=== PATIENT | female | born 1995 | race Hispanic/Latino ===

== ENCOUNTER 2018-11-30 08:29 | Inpatient (IN) | payer SELFPAY ==
[2018-11-30] MEDS ORDERED: Fentanyl 100 MCG/2 ML VIAL ONE (10:31)
[2018-11-30] MEDS ORDERED: Midazolam HCl 2 mg/2 ml Vial ONE (10:50)
[2018-11-30] MEDS ORDERED: Ketorolac Tromethamine 30 MG/ML VIAL ONE (10:51)
--- NOTE | 2018-11-30 11:38 | HP ---
HISTORY OF PRESENT ILLNESS: A 22-year-old female, 2, para 2, 2 months, , has experienced for the last 2 years abdominal pain. She has been in the emergency room 3 to 4 times in the past, seeing her primary care doctor all of which have told her she has reflux and takes Prilosec. On this occasion, she went to the emergency room for severe epigastric right upper quadrant pain. She has never had thoracic burning pain to suggest reflux. The PPI, she has been prescribed and advised to take have not helped her with her pain. On this visit, an ultrasound was obtained revealing gallstones in [place] and she was transferred to this facility for cholecystitis and cholelithiasis. She is seen in preoperative holding and evaluated. ALLERGIES: NONE. SOCIAL HISTORY: Tobacco, none. Alcohol, rarely. MEDICATIONS: None routinely except for Prilosec. PAST SURGICAL HISTORY: Noncontributory. PAST MEDICAL HISTORY: Noncontributory. PHYSICAL EXAMINATION: VITAL SIGNS: 153/84, 92, 98.1 degrees, respiratory rate 24, 250 pounds, 99% saturations. HEAD, EYES, EARS, NOSE, AND THROAT: Unremarkable. Sclerae nonicteric. LUNGS: Clear to auscultation. CARDIAC: Regular rate and rhythm. No murmur or gallop. ABDOMEN: Soft. Mild tenderness in right upper quadrant. EXTREMITIES: Unremarkable. LABORATORY DATA: Hemoglobin 13 and white count 9. Glucose 102, BUN 13, creatinine 0.82, sodium 141, potassium 3.7, chloride 104, carbon dioxide 24, bilirubin is 3, alkaline phosphatase 142, AST 172, SGPT 157, and lipase 19. Ultrasound does reveal intrahepatic ductal dilatation. ASSESSMENT AND PLAN: Dilated bile duct, elevated bilirubin, suspect choledocholithiasis. We would recommend laparoscopic video cholecystectomy, cholangiograms, and she may need an ERCP. Risks and benefits discussed. She consents. Job ID: [id number]
[2018-11-30] MEDS ORDERED: Iothalamate Meglumine 60% 50 ML VIAL FS ONE ×2 (12:05→12:58)
[2018-11-30] MEDS ORDERED: Bupivacaine/Epinephrine 0.25% 30 ML VIAL ONE (12:05)
[2018-11-30] MEDS ORDERED: Indomethacin 50 MG SUPP ONE ×2 (12:58→13:00)
--- NOTE | 2018-11-30 13:10 | CON ---
DATE OF CONSULTATION: 11/30/2018 CHIEF COMPLAINT: Abdominal pain. HISTORY OF PRESENT ILLNESS: Ms. Bowles is a 22-year-old woman, who has had epigastric aching, burning, and pressure-like pain on and off for the last couple of years. The pain lasts for a couple of days at a time and can radiate around towards her right back. She gets episodes of this pain around every few months. This acute episode started 2 nights ago and has persisted. She went to the emergency room and had blood work done that showed elevated liver tests with a bilirubin of 3, alkaline phosphatase of 142, AST of 172, ALT of 157, and normal lipase. She had an ultrasound performed that showed cholelithiasis and suspected choledocholithiasis with extrahepatic biliary dilation. She did have nausea and vomiting with this last night. Her pain did improve earlier this morning, but it seems to be recurring. She has had some chronic constipation. She reports having a bowel movement around once every 3 days and had an anal fissure in the past with that. She was started on a stool softener. Previously for the epigastric pain, she has been treated with proton pump inhibitors. PAST MEDICAL HISTORY: Otherwise negative. She did deliver a healthy baby boy on August 152018. PAST SURGICAL HISTORY: [place] teeth extraction. FAMILY HISTORY: Negative for GI malignancy. SOCIAL HISTORY: No alcohol, tobacco, or drugs. She is breast-feeding. ALLERGIES: NO KNOWN DRUG ALLERGIES. MEDICATIONS: She has taken Prilosec a couple of times 4-week course, but this has not been a long-term medication. REVIEW OF SYSTEMS: Negative x10 systems reviewed except as stated in history of present illness. PHYSICAL EXAMINATION: GENERAL: She is in no acute distress. Alert and oriented x3. HEENT: Eyes have no scleral icterus. Oropharynx is clear without lesions. NECK: No cervical or supraclavicular lymphadenopathy. LUNGS: Clear to auscultation bilaterally. HEART: Regular rate and rhythm without murmur. ABDOMEN: Soft. Mild tenderness in the epigastric region without guarding. Bowel sounds are present. EXTREMITIES: No lower extremity edema. LABORATORY DATA: Liver tests were noted above. White blood cell count was 9.3, hemoglobin 13.4, and platelets 295. IMPRESSION: Suspected choledocholithiasis with possible cholecystitis. She has elevated liver tests suggestive of an obstructing stone and gallstones in the gallbladder. She is planned for laparoscopic cholecystectomy with intraoperative cholangiogram this morning and the plan will be to follow with endoscopic retrograde cholangiopancreatography under the stomach in same anesthesia. I explained the risks and benefits of the endoscopic retrograde cholangiopancreatography in detail with the patient and her , including pictures and risks for failed cannulation and pancreatitis and perforation, bleeding. She is on antibiotics. RECOMMENDATIONS: ERCP today to follow laparoscopic ultrasound with IOC. If IOC shows the stone is passed, then we can hold off ERCP. Job ID: [id number]
[2018-11-30] MEDS ORDERED: Promethazine HCl 25 MG/ML VIAL IM PRN (13:53)
[2018-11-30] MEDS ORDERED: Promethazine HCl 25 MG/ML VIAL SLOW IVP PRN (13:53)
[2018-11-30] MEDS ORDERED: PACU-Morphine 4MG/ML VIAL SLOW IVP PRN (13:53)
[2018-11-30] MEDS ORDERED: Morphine Sulfate 2 MG/ML SYRINGE SLOW IVP PRN (13:53)
[2018-11-30] MEDS ORDERED: Meperidine HCl/PF 25 MG/ML VIAL SLOW IVP PRN (13:53)
[2018-11-30] MEDS ORDERED: Ondansetron HCl/PF 4 MG/2 ML Vial IVP PRN (13:53)
[2018-11-30] MEDS ORDERED: HYDROmorphone 2 MG/ML VIAL SLOW IVP PRN (13:53)
[2018-11-30] MEDS ORDERED: Promethazine HCl 25 MG/ML VIAL ONE (14:02)
[2018-11-30] MEDS ORDERED: Morphine 2 MG/ML SYRINGE SLOW IVP PRN (14:10)
--- NOTE | 2018-11-30 14:36 | OP ---
DATE OF PROCEDURE: 11/30/2018 PROCEDURES PERFORMED: Endoscopic retrograde cholangiopancreatography with sphincterotomy and balloon stone extraction. PREOPERATIVE DIAGNOSIS: Choledocholithiasis. DESCRIPTION OF PROCEDURE: Informed consent was obtained from the patient. She was sedated with general anesthesia. The procedure was performed under the same anesthesia and immediately following laparoscopic cholecystectomy with intraoperative cholangiogram. The IOC showed a dilated common bile duct and distal filling defect. The patient was placed in the prone position. The bite block was placed in the duodenum. Scope was advanced easily to the second portion of the duodenum. There was retained food in the stomach and in the second portion of the duodenum around the ampulla. The common bile duct was selectively cannulated with a guidewire without difficulty on first touch of the ampulla. The cholangiogram was performed that showed the common bile duct dilated to 13 mm with a distal filling defect. The intra and extrahepatic ducts were dilated. A complete sphincterotomy was performed with rapid drainage of the bile and contrast. A 12 mm balloon was then swept through the duct and a 9 mm round cholesterol stone was extracted from the duct with the balloon. The balloon passed through the sphincterotomy easily without resistance. Occlusion cholangiogram and repeat balloon sweep of the duct confirmed the duct to be clear. The fluid and air were suctioned from the stomach. The scope was removed without any immediate complications. IMPRESSION: 1. Cholangiogram showing intra and extrahepatic duct dilation and common bile duct dilation to 13 mm. 2. Complete sphincterotomy performed. 3. A 9 mm round cholesterol stone was extracted with a balloon. 4. Occlusion cholangiogram confirmed the duct to be clear. There was rapid drainage of contrast and bile after sphincterotomy. 5. Retained food in the stomach and duodenum. RECOMMENDATIONS: Follow trend of the liver tests. Job ID: [id number]
--- NOTE | 2018-11-30 14:56 | RAD ---
ERCP 2 VIEWS: Date: 11/30/18 HISTORY: Evaluation for ductal stone. FINDINGS: 2 films presented for interpretation. These show partial filling of the ducts. There is filling of th e common bile duct which appears slightly dilated. Distal common duct is not well visualized. I canno t exclude the presence of a distal common duct stone on this film. There is what may be an air bubble in this region. Postop cholecystectomy changes are seen. IMPRESSION: Limited examination. Distal common bile duct is not well visualized. I cannot exclude a distal ductal stone. POS: FIDEL
[2018-11-30 15:53] VITALS: BMI 44.6
--- NOTE | 2018-11-30 15:53 | RAD ---
OPERATIVE CHOLANGIOGRAM: 11/30/18 Two fluoroscopic images obtained from OR. INDICATIONS: Intraoperative cholangiogram during cholecystectomy procedure. FINDINGS/IMPRESSION: On one of the images, the common duct is opacified. No spoil is seen in the duodenum and I cannot exc lude an inferior common duct stone or obstruction. POS: OFF
[2018-11-30] MEDS ORDERED: SUGAMMADEX SODIUM 500 MG/5 ML VIAL ONE (16:56)
[2018-11-30] MEDS ORDERED: PROPOFOL 200 MG/20 ML VIAL ONE (17:08)
[2018-11-30] MEDS ORDERED: Ondansetron PF 4 MG/2 ML Vial ONE (17:08)
[2018-11-30] MEDS ORDERED: Lidocaine 1% PF 5 ML VIAL ONE (17:08)
[2018-11-30] MEDS ORDERED: Dexamethasone 20 MG/5 ML VIAL ONE (17:08)
[2018-11-30] MEDS ORDERED: Rocuronium Bromide 10 MG/ML (10ML VIAL) ONE (17:08)
[2018-11-30] MEDS: Lactated Ringer's 1,000 ML IV SCH ×2 (17:50→23:01)
[2018-11-30] MEDS ORDERED: Enoxaparin Sodium 40 MG/0.4 ML SYRINGE SC SCH (21:00)
[2018-11-30] MEDS: Acetaminophen 500 MG TAB PO PRN (21:05)
[2018-11-30] MEDS: Ibuprofen 600 MG TAB PO PRN (21:05)
[2018-12-01] MEDS: Ibuprofen 600 MG TAB PO PRN (02:50)
[2018-12-01] MEDS: Acetaminophen 500 MG TAB PO PRN (02:50)
[2018-12-01] MEDS: Lactated Ringer's 1,000 ML IV SCH (05:02)
[2018-12-01 06:34] LABS: ALT (SGPT) 217 U/L (8-55); AST (SGOT) 101 U/L (5-34); Albumin 3.5 g/dL (3.5-5.0); Alkaline Phosphatase 123 U/L (40-150); Anion Gap 11 mmol/L (10-20); BUN (Urea Nitrogen) 11 mg/dL (7.0-18.7); Bilirubin, Total 1.3 mg/dL (0.2-1.2); Calc. Creatinine Clearance 255 mL/min (70-130); Calcium 8.9 mg/dL (7.8-10.44); Carbon Dioxide 24 mmol/L (22-29); Chloride 109 mmol/L (98-107); Estimated GFR-MDRD Greater than 90; Globulin 2.9 g/dL (2.4-3.5); Glucose 83 mg/dL (70-105); Potassium 4.1 mmol/L (3.5-5.1); Protein, Total 6.4 g/dL (6.0-8.3); Sodium 140 mmol/L (136-145)
[2018-12-01 07:48] VITALS: BP 110/71; TEMP 98
--- NOTE | 2018-12-01 10:16 | PRG ---
DATE OF SERVICE: 12/01/2018 SUBJECTIVE: Shelbie Bowles's vital signs are stable, afebrile. She is tolerating a regular diet. She complains of right shoulder pain, which is improving. I have reassured her this will resolve with time. OBJECTIVE: VITAL SIGNS: Temperature 98 degrees, heart rate 68, blood pressure 110/71. LUNGS: Clear to auscultation. CARDIAC: Regular rate and rhythm without murmur or gallop. ABDOMEN: Soft and nontender. LABORATORY DATA: This morning, her bilirubin is down to 1.3. Transaminases have improved. ASSESSMENT AND PLAN: Choledocholithiasis, cholecystitis, cholelithiasis, status post laparoscopic cholecystectomy, endoscopic retrograde cholangiopancreatography, sphincterotomy by Dr. Maria. PLAN: Discharge home today. Diet and activity as tolerated. She will take Tylenol and ibuprofen for pain. Follow up in my office in 2 to 3 weeks. Job ID: [id number]
--- NOTE | 2018-12-02 02:48 | DIS ---
DATE OF ADMISSION: 11/30/2018 DATE OF DISCHARGE: 12/01/2018 Ms. Bowles is doing well today. DISCHARGE DIAGNOSES: 1. Cholecystitis. 2. Cholelithiasis. 3. Choledocholithiasis. 4. Breast feeding . HISTORY: A 22-year-old female with 2 years of epigastric pain treated as reflux. She did not have any burning thoracic pain consistent with reflux. PPIs have not helped her pain. She presented with unrelenting episode and her fourth presentation in the emergency room. Obtained an ultrasound documenting dilated bile duct caliber and gallstones. Transferred to this facility, hospitalized with intravenous fluids and antibiotics, and preoperative holding, undergoing laparoscopic cholecystectomy, cholangiograms noting choledocholithiasis and sphincterotomy with ERCP and extraction of common duct stones by Dr. Alec Maria. She is hospitalized overnight, discharged home at this time with Tylenol or Advil p.r.n. pain. She is . The pain is well controlled. Diet and activity as tolerated. Follow up in my office in 2 to 3 weeks. Job ID: [id number]
--- NOTE | 2018-12-02 11:52 | OP ---
DATE OF PROCEDURE: 11/30/2018 PREOPERATIVE DIAGNOSES: Cholecystitis, cholelithiasis, breast-feeding, three months ; dilated intrahepatic ducts; bilirubin 3. POSTOPERATIVE DIAGNOSES: Chronic cholecystitis, cholelithiasis, and choledocholithiasis. PROCEDURES PERFORMED: Laparoscopic video cholecystectomy, cholangiograms using fluoroscopy, positive cholangiograms. The patient was sent postoperatively to ERCP, Dr. Alec Maria, sphincterotomy stone extraction accomplished successfully. ANESTHESIA: General anesthesia, local, 0.5% Marcaine with epinephrine 30 mL. DESCRIPTION OF PROCEDURE: The patient was taken to the operating room under general anesthesia, abdomen was prepared with ChloraPrep, draped in routine fashion. Local anesthetic was infiltrated in the skin and subcutaneous tissue about each port site. Infraumbilical incision was made. Pneumoperitoneum to 15 mmHg was obtained with a Veress needle, replaced with a 5 port, and video laparoscope inserted. Right subxiphoid incision was made and an 11 port placed, right subcostal incision was made, midclavicular and anterior axillary lines, a 5 port was placed. Liver appeared to be normal. Gallbladder was distended. Fundus of the gallbladder was grasped at the cephalad. Infundibulum was grasped and reflected laterally. Cystic artery and duct dissected free. Critical view obtained. Cystic artery doubly clipped proximally, cystic duct singly clipped on the gallbladder side. The cystic duct was broad and dilated. Opening was made in the cystic duct and stones milked retrograde out the cystic duct and cholangiocatheter was inserted. Cholangiogram was obtained using fluoroscopy, revealing filling of the common hepatic, common bile duct, and right hepatic ducts with absence of flow into the duodenum and a meniscus sign distally indicative of choledocholithiasis. Cholangiocatheter was removed. Cystic duct was now doubly clipped. Cystic artery and duct divided. Gallbladder dissected free from liver bed obtaining good hemostasis prior to division of final peritoneal attachments. Gallbladder and contents were removed and submitted to Pathology. The irrigant and pneumoperitoneum were evacuated. All instruments were removed. All skin incisions were approximated with interrupted subdermal 4-0 Monocryl and Paauilo glue applied. The patient then transferred to the ERCP suite for Dr. Alec Maria, who will perform ERCP, sphincterotomy with stone extraction. Job ID: [id number]
== END 2018-12-01 11:08 | disposition home or self-care (01) | DRG 419 ==
LOC: SDC 08:29 → SURG A 13:57
PROVIDERS: ADMIT Specialist; ATTEND Specialist
PROC: 0FT44ZZ Resection of Gallbladder, Percutaneous Endoscopic Approach (ICD-10-PCS; principal; 2018-11-30)
PROC: 0F798ZZ Dilation of Common Bile Duct, Via Natural or Artificial Opening Endoscopic (ICD-10-PCS; 2018-11-30)
PROC: BF10YZZ Fluoroscopy of Bile Ducts using Other Contrast (ICD-10-PCS; 2018-11-30)
DX: K80.64 Calculus of gallbladder and bile duct with chronic cholecystitis without obstruction (principal); K59.00 Constipation, unspecified
CPT/HCPCS: 36415; 47532; 74330; 80053; J0131; J1610; J1650; J1885; J2250; J2270; J2550; J3010; Q9961